=== PATIENT | male | born 1995 | race Caucasian/White ===

== ENCOUNTER 2017-11-18 21:50 | Emergency (ER) | payer OTHER ==
[~2017-11-18] VITALS: Ht 185.4 cm; Wt 72.7 kg
[2017-11-19 00:30] VITALS: BP 131/67; PULSE 85; TEMP 98.5
== END 2017-11-19 00:38 | disposition home or self-care (01) ==
LOC: COL.ER 21:50
DX: S01.512A Laceration without foreign body of oral cavity, initial encounter (principal); W50.0XXA Accidental hit or strike by another person, initial encounter; Y92.321 Football field as the place of occurrence of the external cause